=== PATIENT | male | born 1945 | race Caucasian/White ===

== ENCOUNTER 2018-09-13 11:39 | Observation (INO) | payer MEDICARE ==
[~2018-09-13] VITALS: Ht 175.3 cm; Wt 68.3 kg
--- NOTE | 2018-09-13 11:44 | NUR ---
Code Neuro called @ [id number] Dr. Harrison paged @ [phone]
--- NOTE | 2018-09-13 11:50 | NUR ---
PT TO CT AT THIS TIME.
[2018-09-13] MEDS ORDERED: ATOR10TA9 PO (11:54)
[2018-09-13 11:56] LABS: MEAN CORPUSCULAR HEMOGLOBIN 34.3 pg (27.5-34.5); MEAN CORPUSCULAR HGB CONC 34.2 g/dL (33.2-36.2); MEAN CORPUSCULAR VOLUME 100.4 fL (81-97); MEAN PLATELET VOLUME 7.2 fL (7.4-10.4); PLATELET COUNT 269 x10^3/uL (130-400); RED BLOOD COUNT 4.09 x10^6/uL (4.38-5.82)
--- NOTE | 2018-09-13 12:05 | NUR ---
FLOAT RN ASSISTING PRIMARY RN BILL. PT BACK FROM CT. RESTING COMFORTABLY IN BED. A&OX4, ANSWERING QUESTIONS APPROPRIATELY. NEURO AND CMS INTACT. EQUAL AND STRONG FLEXION, DORSIFLEXION, GRASPS. SPEECH CLEAR. BILATERAL RADIAL AND PEDAL PULSES STRONG. PT DENIES ANY NUBMNESS, TINGLING, WEAKNESS, PAIN, REYES, VISUAL CHANGES OR DIFFICULTY, CP, SOB, N/V/D. CONT. BP, PULSE OX, CARDIAC MONITORS IN PLACE. VSS. SR ON MONITOR. EKG COMPLETED. SPOUSE AT BEDSIDE. FALL PRECAUTIONS IN PLACE. SIDE RAILS UPX2. REPORT AND CARE BACK TO PRIMARY RN BILL.
[2018-09-13] MEDS ORDERED: OMNIPAQUE 350 MG/ML, 100ML BOTTLE ONE (12:07)
[2018-09-13 12:08] LABS: INTERNATIONAL NORMALIZED RATIO 1.11 (0.93-1.1); PROTHROMBIN TIME 11.7 Seconds (9.6-11.5)
[2018-09-13 12:18] LABS: BASOPHILS # (AUTO) 0.02 x10^3/uL (0-0.1); BASOPHILS % (AUTO) 0 % (0-1); EOSINOPHILS # (AUTO) 0.02 x10^3/uL (0-0.4); EOSINOPHILS % (AUTO) 0 % (1-7); LYMPHOCYTES % (AUTO) 7 % (22-44); MD SCAN; MONOCYTES # (AUTO) 0.85 x10^3/uL (0.2-0.8); MONOCYTES % (AUTO) 8 % (2-9); NEUTROPHILS # (AUTO) 8.74 x10^3/uL (1.8-6.8); NEUTROPHILS % (AUTO) 85 % (42-75)
[2018-09-13] MEDS ORDERED: ASPIRIN 325 MG TABLET PO ONE (12:23)
[2018-09-13] MEDS ORDERED: ASPIRIN 325 MG TABLET ONE (13:04)
--- NOTE | 2018-09-13 13:10 | NUR ---
BREAK RN. PT MEDICATED NOTED PER DR. GOMEZ WITH ASPIRIN. DR. GOMEZ AT BEDSIDE DISCUSSING TEST RESULTS, POC, AND ADMISSION TO HOSPITAL, PT AND SPOUSE AGREE TO POC AND VERBALIZED UNDERSTANDING. MONITORS REMAIN IN PLACE. A&OX4, CONTINUES ANSWERING QUESTIONS APPROPRIATELY, SPEECH CLEAR. NEURO AND CMS INTACT. CALL LIGHT IN REACH. FALL PRECAUTIONS IN PLACE. AND FAMILY AT BEDSIDE. DENIES ANY PAIN AND NEED TO USE RESTROOM.
--- NOTE | 2018-09-13 13:21 | NUR ---
BEDSIDE REPORT AND CARE BACK TO PRIMARY RN BILL RN AT THIS TIME.
[2018-09-13] MEDS ORDERED: LORazepam 2 MG/ML, 1ML ONE (13:40)
--- NOTE | 2018-09-13 13:56 | NUR ---
PT MEDICATED WITH 1MG ATIVAN IVP. PT TO MRI AT THIS TIME.
[2018-09-13] MEDS ORDERED: LORazepam 2 MG/ML, 1ML IVPush ONE (14:00)
[2018-09-13] MEDS ORDERED: GADOBUTROL 7.5 MMOL/7.5 ML PFS ONE (14:11)
[2018-09-13] MEDS ORDERED: ACETAMINOPHEN 325 MG TABLET PO PRN (15:00)
[2018-09-13] MEDS ORDERED: DOCUSATE 100 MG CAPSULE PO PRN (15:00)
[2018-09-13] MEDS ORDERED: ONDANSETRON 2MG/ML, 2ML IVPush PRN (15:00)
[2018-09-13] MEDS ORDERED: IBUPROFEN 600 MG TABLET PO PRN (15:00)
[2018-09-13] MEDS ORDERED: ONDANSETRON 4 MG TABLET PO PRN (15:00)
[2018-09-13] MEDS ORDERED: ENALAPRILAT 1.25 MG/ML, 2ML IV PRN (15:00)
[2018-09-13] MEDS ORDERED: POLYETHYLENE GLYCOL 17 GM PACKET PO PRN (15:00)
[2018-09-13] MEDS ORDERED: BISACODYL 10 MG SUPP PR PRN (15:00)
[2018-09-13] MEDS ORDERED: LABETALOL 5MG/ML, 20ML IV PRN (15:00)
--- NOTE | 2018-09-13 15:35 | NUR ---
LUNCH TRAY SERVED TO PATIENT.
--- NOTE | 2018-09-13 19:26 | NUR ---
REPORT REC, PT RESTING QUIETLY, AWAIT ROOM ASSIGNMENT
[2018-09-13] MEDS ORDERED: ATORVASTATIN 40 MG TABLET PO SCH (21:00)
[2018-09-13 21:11] VITALS: BP 134/82
[2018-09-14 00:47] VITALS: BP 122/76
[2018-09-14 02:24] VITALS: BP 116/66
[2018-09-14 06:36] LABS: CHOL/HDL RATIO 2.6; LDL/HDL RATIO 1.4 (0.5-3.0)
[2018-09-14 07:14] VITALS: BP 128/78
[2018-09-14] MEDS ORDERED: ASPIRIN 81 MG TABLET CHEW PO/NG SCH (09:00)
[2018-09-14 13:51] VITALS: BP 110/71
[2018-09-14] MEDS ORDERED: ATOR40TA78 PO (18:34)
[2018-09-14] MEDS ORDERED: ASPI-515 PO/NG (18:34)
== END 2018-09-14 19:14 | disposition home or self-care (01) ==
LOC: ED 12:14 → EDIP 14:44 → 4EST 21:03
PROVIDERS: ADMIT Hospitalist; ATTEND Hospitalist
DX: G45.9 Transient cerebral ischemic attack, unspecified (principal); I63.9 Cerebral infarction, unspecified; D72.829 Elevated white blood cell count, unspecified; D75.89 Other specified diseases of blood and blood-forming organs; E78.00 Pure hypercholesterolemia, unspecified; E78.5 Hyperlipidemia, unspecified; I10 Essential (primary) hypertension; I35.8 Other nonrheumatic aortic valve disorders; Z80.0 Family history of malignant neoplasm of digestive organs; Z82.3 Family history of stroke; Z86.73 Personal history of transient ischemic attack (TIA), and cerebral infarction without residual deficits
CPT/HCPCS: 36415; 70450; 70496; 70498; 70553; 80047; 80061; 85025; 85610; 85730; 93005; 93306; 96374; 99284; A9585; G0378; J2060; Q9967

== ENCOUNTER 2018-12-03 11:03 | Day surgery (SDC) | payer MEDICARE ==
[~2018-12-03] VITALS: Ht 175.3 cm; Wt 68.2 kg
[~2018-12-03 11:03] MED LIST: ASPI-515 PO/NG; ATOR10TA9 PO; ATOR40TA78 PO
[2018-12-03 11:33] VITALS: BP 135/81
[2018-12-03] MEDS ORDERED: LIDOCAINE 1%, 20ML ONE (11:41)
[2018-12-03] MEDS ORDERED: ATORVASTATIN 40 MG TABLET PO SCH (21:00)
[2018-12-04] MEDS ORDERED: ASPIRIN 81 MG TABLET EC PO SCH (09:00)
== END 2018-12-03 13:36 | disposition home or self-care (01) ==
LOC: CACL 11:03
PROVIDERS: ATTEND Internal Medicine Cardiovascular Disease
DX: Z45.09 Encounter for adjustment and management of other cardiac device (principal); I63.9 Cerebral infarction, unspecified; E78.2 Mixed hyperlipidemia; Z79.82 Long term (current) use of aspirin
CPT/HCPCS: 33285; C1764; J3490